=== PATIENT | female | born 1985 | race Caucasian/White ===

== ENCOUNTER 2019-06-08 08:57 | Day surgery (SDC) | payer BC ==
[2019-06-08] VITALS (9 sets, daily range): BP systolic 110–124; BP diastolic 61–75; PULSE 70–98; RESP 13–20; Ht 160 cm; Wt 67.4 kg
[~2019-06-08] VITALS: Ht 160 cm; Wt 67.4 kg
[~2019-06-08 08:57] MED LIST: ACETAMINOPHEN 500 MG TAB PO ONE
[2019-06-08] MEDS ORDERED: ONDANSETRON 4 MG INJ ONE (09:50)
[2019-06-08] MEDS ORDERED: PROPOFOL 40 ML ONE (09:50)
[2019-06-08] MEDS ORDERED: FENTAnyl 50 MCG/ML VIAL ONE (09:50)
[2019-06-08] MEDS ORDERED: LIDOCAINE 2% (SDV) 5 ML INJ ONE (09:50)
[2019-06-08] MEDS ORDERED: MIDAZOLAM 1 MG/ML 2 ML INJ ONE (09:50)
[2019-06-08] MEDS ORDERED: CEFAZOLIN 1 GM INJ ONE (09:50)
[2019-06-08] MEDS ORDERED: FAMOTIDINE 20 MG INJ ONE (09:51)
[2019-06-08] MEDS ORDERED: LACTATED RINGER'S 1,000 ML IV SCH (10:00)
[2019-06-08] MEDS ORDERED: DESFLURANE 15 MIN ONE (10:30)
[2019-06-08] MEDS ORDERED: STRONG IODINE 14 ML SOLUTION TOP ONE (10:30)
[2019-06-08] MEDS ORDERED: DEXAMETHASONE 4 MG/ML 5 ML INJ ONE ×2 (10:47→10:49)
[2019-06-08] MEDS ORDERED: EPHEDrine 25 MG/5 ML SYG ONE (10:48)
[2019-06-08] MEDS ORDERED: KETOROLAC 30 MG INJ ONE (10:56)
[2019-06-08] MEDS ORDERED: hydrALAzine 20 MG INJ IV PRN (11:00)
[2019-06-08] MEDS ORDERED: OXYCODONE/ACETAMINOPHEN (5/325) TAB PO PRN ×2 (11:00)
[2019-06-08] MEDS ORDERED: FENTAnyl 50 MCG/ML VIAL IV PRN ×2 (11:00)
[2019-06-08] MEDS ORDERED: ONDANSETRON 4 MG INJ IV PRN (11:00)
[2019-06-08] MEDS ORDERED: morphine 2 MG INJ IV PRN ×2 (11:00)
[2019-06-08] MEDS ORDERED: KETOROLAC 15 MG INJ IV PRN (11:00)
[2019-06-08] MEDS ORDERED: LEVALBUTEROL (NEB) 0.63 MG/3 ML AMP HHN PRN (11:00)
[2019-06-08] MEDS ORDERED: DIPHENHYDRAMINE 50 MG INJ IV PRN (11:00)
[2019-06-08] MEDS ORDERED: HYDROmorphONE 1 MG/5 ML IV SYRINGE IV PRN ×3 (11:00)
[2019-06-08] MEDS ORDERED: EPHEDrine 25 MG/5 ML SYG IV PRN (11:00)
[2019-06-08] MEDS ORDERED: ALBUTEROL 0.083% (NEB) 2.5 MG/3 ML AMP HHN PRN (11:00)
[2019-06-08] MEDS ORDERED: LABETALOL HCL 20MG INJ IV PRN (11:00)
[2019-06-08] MEDS ORDERED: ATROPINE 1 MG/10 ML SYRINGE IV PRN (11:00)
== END 2019-06-08 12:53 | disposition home or self-care (01) ==
LOC: SDS 08:57
PROVIDERS: ATTEND Obstetrics & Gynecology
DX: N87.0 Mild cervical dysplasia (principal)
CPT/HCPCS: 84702; 84703; 85025; 86850; 86900; 86901; 88305; J0690; J1100; J1885; J2250; J2405; J3010